=== PATIENT | female | born 1990 | race Caucasian/White ===

== ENCOUNTER 2017-11-01 20:56 | Emergency (ER) | payer OTHER ==
[~2017-11-01] VITALS: Ht 162.6 cm; Wt 82.1 kg
[2017-11-01 21:42] LABS: BILIRUBIN,URINE NEGATIVE (NEG); CLARITY,URINE CLOUDY; COLOR,URINE YELLOW; NITRITE,URINE NEGATIVE (NEG); PH,URINE 7.5; PROTEIN,URINE NEGATIVE (NEG-TRACE)
[2017-11-01 21:46] LABS: BARBITURATES NEG (NEG); BENZODIAZEPINES NEG (NEG); CANNABINOIDS NEG (NEG); COCAINE NEG (NEG); METHADONE NEG (NEG); OPIATES NEG (NEG); PHENCYCLIDINE NEG (NEG)
[2017-11-01 21:48] LABS: AMPHETAMINE/METHAMPHETAMINE NEG (NEG)
[2017-11-01 21:51] LABS: BACTERIA,URINE FEW /HPF (0-FEW); RBC,URINE 0 /HPF (0-2); SQUAMOUS EPITHELIAL CELL,UR MOD /LPF; WBC,URINE 0 /HPF (0-4)
[2017-11-01 21:52] LABS: AMORPHOUS SEDIMENT,UR PRESENT /HPF
[2017-11-01 22:09] LABS: BASO # 0.1 x10^3/uL (0.0-0.2); BASO % 1 % (0-3); EOS % 0 % (0-3); HEMATOCRIT 34.1 % (36.0-47.0); HEMOGLOBIN 11.8 g/dL (12.0-15.5); LYMPH # 3.3 x10^3/uL (1.0-4.8); LYMPH % 34 % (24-48); MEAN CORPUSCULAR HEMOGLOBIN 32 pg (25-35); MEAN CORPUSCULAR HGB CONC 35 g/dL (31-37); MEAN CORPUSCULAR VOLUME 93 fL (79-100); MONO # 0.9 x10^3/uL (0.0-1.1); MONO % 9 % (0-9); NEUT # 5.3 x10^3uL (1.8-7.7); NEUT % 55 % (31-73); PLATELET COUNT 226 x10^3/uL (140-400); RED BLOOD COUNT 3.67 x10^6/uL (3.50-5.40); RED CELL DISTRIBUTION WIDTH 13.3 % (11.5-14.5); WHITE BLOOD COUNT 9.6 x10^3/uL (4.0-11.0)
[2017-11-01 22:17] LABS: CALCIUM 8.9 mg/dL (8.5-10.1); CREATININE 0.9 mg/dL (0.6-1.0); GFR 74.6; POTASSIUM 3.7 mmol/L (3.5-5.1)
[2017-11-01 22:23] LABS: ALBUMIN 3.5 g/dL (3.4-5.0); ALBUMIN/GLOBULIN RATIO 0.9 (1.0-1.7); TOTAL BILIRUBIN 0.3 mg/dL (0.2-1.0); TOTAL PROTEIN 7.5 g/dL (6.4-8.2)
[2017-11-01 22:26] LABS: U PREG PATIENT NEGATIVE (NEG)
[2017-11-01] MEDS ORDERED: DEXAMETHASONE SOD PHOS 20 MG/5 ML VIAL. IV ONE (22:30)
[2017-11-01] MEDS ORDERED: DICYCLOMINE HCL 10 MG CAPSULE PO ONE (22:30)
[2017-11-01] MEDS ORDERED: IV NORMAL SALINE 1000ML BAG 1,000 ML IV ONE (22:30)
[2017-11-01] MEDS ORDERED: FAMOTIDINE 20 MG/2 ML VIAL IVP ONE (22:30)
[2017-11-01] MEDS ORDERED: ONDANSETRON PF 4 MG/2 ML VIAL. IV ONE (22:30)
[2017-11-01] MEDS ORDERED: CONTRAST GIVEN. MC PRN (23:00)
[2017-11-01] MEDS ORDERED: IOHEXOL 300 MG/ML 100ML VIAL. IV ONE (23:30)
--- NOTE | 2017-11-01 23:30 | RAD ---
CT abdomen and pelvis with contrast TECHNIQUE: Helical CT imaging of the abdomen and pelvis acquired with 75 mL Omnipaque 300 intravenous contrast HISTORY: Diarrhea and abdominal pain. Abdomen findings: 3 mm right middle lobe pulmonary nodule image 5. Right L5 pars defect. Multilevel lumbar laminectomies. Kidneys, adrenal glands, spleen, pancreas, liver and gallbladder are unremarkable. No duodenum and jejunum at the left upper quadrant demonstrate mild wall thickening. No bowel obstruction. The appendix is negative. There is mild wall thickening of the descending and rectosigmoid colon. No abdominal fluid or adenopathy. Pelvis findings: Mild bladder wall thickening and groundglass densities could be edema. Uterus and ovaries and bones are unremarkable. Rectosigmoid colonic wall thickening. No pelvic fluid or adenopathy. IMPRESSION: 1. Wall thickening of the duodenum, jejunum and distal colon likely representing enterocolitis. No bowel obstruction. 2. There may be mild wall thickening and edema of the bladder which could indicate cystitis. 3. The appendix is negative. 4. 3 mm right middle lobe pulmonary nodule. In a patient without risk factors for malignancy no follow-up is required, in a patient with risk factors follow-up imaging in 12 months would be advised per the Fleischner guidelines. Exposure: One or more of the following individualized dose reduction techniques were utilized for this examination: 1. Automated exposure control 2. Adjustment of the mA and/or kV according to patient size 3. Use of iterative reconstruction technique Electronically signed by: Polo Nguyen MD (11/01/2017 11:27 PM) [facility]
[2017-11-02] MEDS ORDERED: ONDA4TAB10 SL (00:04)
[2017-11-02] MEDS ORDERED: HYDR-971 PO (00:04)
[2017-11-02] MEDS ORDERED: CIPR500T94 PO (00:04)
[2017-11-02] MEDS ORDERED: METR500T PO (00:04)
--- NOTE | 2017-11-02 00:04 | PHYS DOC ---
Past Medical History Past Medical History: Anxiety, Arthritis, Seizure Additional Past Medical Histor: ULCERTATIVE COLITIS, SPINA BIFIDA, Additional Past Surgical Histo: 1991 AND 2003 SPINA BIFIDA CORRECTION Alcohol Use: None Drug Use: None Adult General Chief Complaint Chief Complaint: GI PROBLEM [facility] HPI Patient is a 27 year old female with history of anxiety, ulcerative colitis, who presents today with multiple complaints. Patient states for the last 3 days she's had severe diarrhea. She states today she had over 17 loose stools. She states this could be part of her UC. She states she's been following up with her own GI doctor for UC and was put on medications. She states she also has pressure on her lower abdomen as well as pain pain around the vaginal area. She states her current symptoms have made her anxiety worse. Patient denies any hematemesis or melena. Denies any suicidal homicidal ideations. Review of Systems Review of Systems Constitutional: Denies fever or chills [] Eyes: Denies change in visual acuity, redness, or eye pain [] HENT: Denies nasal congestion or sore throat [] Respiratory: Denies cough or shortness of breath [] Cardiovascular: No additional information not addressed in HPI [] GI: reports lower abdominal pain,and diarrhea and vaginal pain, denies nausea, vomiting, bloody stools : Denies dysuria or hematuria [] Musculoskeletal: Denies back pain or joint pain [] Integument: Denies rash or skin lesions [] Neurologic: Denies headache, focal weakness or sensory changes [] All other systems were reviewed and found to be within normal limits, except as documented in this note. Current Medications Current Medications Current Medications Medications (Trade) Dose Ordered Sig/Jocelyn Start Time Stop Time Status Last Admin Dose Admin Dexamethasone Sodium Phosphate (Decadron) 10 mg 1X ONCE 11/01/17 22:30 11/01/17 22:31 DC 11/01/17 22:29 10 MG Dicyclomine HCl (Bentyl) 10 mg 1X ONCE 11/01/17 22:30 11/01/17 22:31 DC 11/01/17 22:29 10 MG Famotidine (Pepcid Vial) 20 mg 1X ONCE 11/01/17 22:30 11/01/17 22:31 DC 11/01/17 22:29 20 MG Info (CONTRAST GIVEN -- Rx MONITORING) 1 each PRN DAILY PRN 11/01/17 23:00 11/03/17 22:59 Iohexol (Omnipaque 300 Mg/ml) 75 ml 1X ONCE 11/01/17 23:30 11/01/17 23:31 DC 11/01/17 23:06 75 ML Ondansetron HCl (Zofran) 4 mg 1X ONCE 11/01/17 22:30 11/01/17 22:31 DC 11/01/17 22:27 4 MG Sodium Chloride 1,000 ml @ 1,000 mls/hr 1X ONCE 11/01/17 22:30 11/01/17 23:29 DC 11/01/17 22:26 1,000 MLS/HR Allergies Allergies Allergies Coded Allergies Type Severity Reaction Last Updated Verified fluoxetine Allergy Intermediate 11/01/17 Yes hydromorphone Allergy Intermediate 11/01/17 Yes lamotrigine Allergy Intermediate 11/01/17 Yes Physical Exam Physical Exam Constitutional: Well developed, well nourished, no acute distress, non-toxic appearance. [] HENT: Normocephalic, atraumatic, bilateral external ears normal, oropharynx moist, no oral exudates, nose normal. [] Eyes: PERRLA, EOMI, conjunctiva normal, no discharge. [] Neck: Normal range of motion, no tenderness, supple, no stridor. [] Cardiovascular:Heart rate regular rhythm, no murmur [] Lungs & Thorax: Bilateral breath sounds clear to auscultation [] Abdomen: Bowel sounds normal, soft, diffuse tenderness to lower abdominal region , no point tenderness to the right lower quadrant, no masses, no pulsatile masses. Pelvic exam External pelvic appears normal, cervix is closed, no CMT, no adnexal tenderness , trace amount of white discharge in the vaginal vault. Skin: Warm, dry, no erythema, no rash. [] Back: No tenderness, no CVA tenderness. [] Extremities: No tenderness, no cyanosis, no clubbing, ROM intact, no edema. [] Neurologic: Alert and oriented X 3, normal motor function, normal sensory function, no focal deficits noted. [] Psychologic: Affect normal, judgement normal, mood normal. [] Current Patient Data Vital Signs Vital Signs Date Time Temp Pulse Resp B/P (MAP) Pulse Ox O2 Delivery O2 Flow Rate FiO2 11/01/17 22:15 65 105/62 (76) 98 Room Air 11/01/17 21:28 98.5 16 98.5 Lab Values Laboratory Tests Test 11/01/17 21:20 11/01/17 21:50 Urine Collection Type Unknown Urine Color Yellow Urine Clarity Cloudy Urine pH 7.5 Urine Specific [place] 1.020 Urine Protein Negative mg/dL (NEG-TRACE) Urine Glucose (UA) Negative mg/dL (NEG) Urine Ketones (Stick) Negative mg/dL (NEG) Urine Blood Negative (NEG) Urine Nitrite Negative (NEG) Urine Bilirubin Negative (NEG) Urine Urobilinogen Dipstick 1.0 mg/dL (0.2 mg/dL) Urine Leukocyte Esterase Negative (NEG) Urine RBC 0 /HPF (0-2) Urine WBC 0 /HPF (0-4) Urine Squamous Epithelial Cells Mod /LPF Urine Amorphous Sediment Present /HPF Urine Bacteria Few /HPF (0-FEW) Urine Test Negative (NEG) Urine Opiates Screen Neg (NEG) Urine Methadone Screen Neg (NEG) Urine Barbiturates Neg (NEG) Urine Phencyclidine Screen Neg (NEG) Urine Amphetamine/Methamphetamine Neg (NEG) Urine Benzodiazepines Screen Neg (NEG) Urine Cocaine Screen Neg (NEG) Urine Cannabinoids Screen Neg (NEG) Urine Ethyl Alcohol Neg (NEG) White Blood Count 9.6 x10^3/uL (4.0-11.0) Red Blood Count 3.67 x10^6/uL (3.50-5.40) Hemoglobin 11.8 g/dL (12.0-15.5) L Hematocrit 34.1 % (36.0-47.0) L Mean Corpuscular Volume 93 fL (79-100) Mean Corpuscular Hemoglobin 32 pg (25-35) Mean Corpuscular Hemoglobin Concent 35 g/dL (31-37) Red Cell Distribution Width 13.3 % (11.5-14.5) Platelet Count 226 x10^3/uL (140-400) Neutrophils (%) (Auto) 55 % (31-73) Lymphocytes (%) (Auto) 34 % (24-48) Monocytes (%) (Auto) 9 % (0-9) Eosinophils (%) (Auto) 0 % (0-3) Basophils (%) (Auto) 1 % (0-3) Neutrophils # (Auto) 5.3 x10^3uL (1.8-7.7) Lymphocytes # (Auto) 3.3 x10^3/uL (1.0-4.8) Monocytes # (Auto) 0.9 x10^3/uL (0.0-1.1) Eosinophils # (Auto) 0.0 x10^3/uL (0.0-0.7) Basophils # (Auto) 0.1 x10^3/uL (0.0-0.2) Sodium Level 138 mmol/L (136-145) Potassium Level 3.7 mmol/L (3.5-5.1) Chloride Level 103 mmol/L (98-107) Carbon Dioxide Level 27 mmol/L (21-32) Anion Gap 8 (6-14) Blood Urea Nitrogen 9 mg/dL (7-20) Creatinine 0.9 mg/dL (0.6-1.0) Estimated GFR (Cockcroft-Gault) 74.6 BUN/Creatinine Ratio 10 (6-20) Glucose Level 102 mg/dL (70-99) H Calcium Level 8.9 mg/dL (8.5-10.1) Total Bilirubin 0.3 mg/dL (0.2-1.0) Aspartate Amino Transferase (AST) 12 U/L (15-37) L Alanine Aminotransferase (ALT) 16 U/L (14-59) Alkaline Phosphatase 65 U/L (46-116) Total Protein 7.5 g/dL (6.4-8.2) Albumin 3.5 g/dL (3.4-5.0) Albumin/Globulin Ratio 0.9 (1.0-1.7) L Ethyl Alcohol Level < 10 mg/dL (0-10) Laboratory Tests 11/01/17 21:50 Laboratory Tests 11/01/17 21:50 Microbiology 11/01/17 Wet Prep - Final, Complete EKG EKG [] Radiology/Procedures Radiology/Procedures []PROCEDURE: CT ABD PELV W/ IV CONTRST ONLY CT abdomen and pelvis with contrast TECHNIQUE: Helical CT imaging of the abdomen and pelvis acquired with 75 mL Omnipaque 300 intravenous contrast HISTORY: Diarrhea and abdominal pain. Abdomen findings: 3 mm right middle lobe pulmonary nodule image 5. Right L5 pars defect. Multilevel lumbar laminectomies. Kidneys, adrenal glands, spleen, pancreas, liver and gallbladder are unremarkable. No duodenum and jejunum at the left upper quadrant demonstrate mild wall thickening. No bowel obstruction. The appendix is negative. There is mild wall thickening of the descending and rectosigmoid colon. No abdominal fluid or adenopathy. Pelvis findings: Mild bladder wall thickening and groundglass densities could be edema. Uterus and ovaries and bones are unremarkable. Rectosigmoid colonic wall thickening. No pelvic fluid or adenopathy. IMPRESSION: 1. Wall thickening of the duodenum, jejunum and distal colon likely representing enterocolitis. No bowel obstruction. 2. There may be mild wall thickening and edema of the bladder which could indicate cystitis. 3. The appendix is negative. 4. 3 mm right middle lobe pulmonary nodule. In a patient without risk factors for malignancy no follow-up is required, in a patient with risk factors follow-up imaging in 12 months would be advised per the Fleischner guidelines. Exposure: One or more of the following individualized dose reduction techniques were utilized for this examination: 1. Automated exposure control 2. Adjustment of the mA and/or kV according to patient size 3. Use of iterative reconstruction technique Electronically signed by: Polo Nguyen MD (11/01/2017 11:27 PM) [facility] DICTATED and SIGNED BY: POLO NGUYEN MD DATE: 11/01/17 2313 Course & Med Decision Making Course & Med Decision Making Pertinent Labs and Imaging studies reviewed. (See chart for details) This is a 27-year-old female patient with history of anxiety, ulcerative colitis , who presents today complaining of multiple episodes of diarrhea, abdominal pain and vaginal pain. Negative urine hCG, CBC with normal WBC, hemoglobin 11.8, hematocrit 34.1. Wet prep positive for BV. CT of the abdomen and pelvic was noted for enterocolitis. Were discharged with Cipro and Flagyl. CT also mentioned possible mild blood thickening that could be cystitis. Patient does not have any UTI symptoms, her urine analysis is negative for infection. Patient was noted to have a right 3 mm middle lobe pulmonary nodule. Patient is not a smoker. Requested she follows up with her PCP. Also requested follow-up with the GI doctor. Dragon Disclaimer Dragon Disclaimer This electronic medical record was generated, in whole or in part, using a voice recognition dictation system. Departure Departure Impression: Primary Impression: Enterocolitis Additional Impressions: Bacterial vaginosis Abdominal pain Disposition: HOME, SELF-CARE Condition: STABLE Referrals: NON,STAFF (PCP) follow up in one week with your GI doctor as well as primary care doctor Patient Instructions: Abdominal Pain, Bacterial Vaginosis, [id number], Colitis, Ulcerative Colitis Additional Instructions: You were evaluated for abdominal pain and noted to have enterocolitis. You also have bacterial vaginosis. Ensure you complete your antibiotics. Follow-up with a GI doctor as well as primary care doctor in the course of next week. Scripts Hydrocodone/Apap 5-325 (NORCO 5-325 TABLET) 1 Each Tablet 1 TAB PO Q6HRS, #12 TAB Prov: CELINA BRONSON APRN 11/02/17 Ondansetron (ZOFRAN ODT) 4 Mg Tab.rapdis 1 TAB SL Q8HRS, #15 TAB Prov: CELINA BRONSON APRN 18 Ciprofloxacin Hcl (CIPRO) 500 Mg Tablet 1 TAB PO BID, #20 TAB Prov: CELINA BRONSON APRN 18 Metronidazole (FLAGYL) 500 Mg Tablet 500 MG PO TID, #30 TAB Prov: CELINA BRONSON APRN 18 Problem Qualifiers Additional Impressions: Abdominal pain Abdominal location: lower abdomen, unspecified Qualified Codes: R10.30 - Lower abdominal pain, unspecified CELINA BRONSON APRN Nov 02, 2017 00:04
[2017-11-02 00:57] VITALS: BP 104/60
[2017-11-04 14:28] LABS: GC PROBE Negative (Negative)
== END 2017-11-02 00:10 | disposition home or self-care (01) ==
LOC: ER 20:56
DX: R19.7 Diarrhea, unspecified (principal); R10.2 Pelvic and perineal pain; R10.84 Generalized abdominal pain; Z88.5 Allergy status to narcotic agent; Z88.8 Allergy status to other drugs, medicaments and biological substances
CPT/HCPCS: 36415; 74177; 80053; 80307; 81001; 81025; 85025; 87491; 87591; 96361; 96374; 96375; 99285; G0480; J1100; J2405; J7030; Q0111; Q9967; S0028; G0479

== ENCOUNTER 2018-06-22 14:11 | Emergency (ER) | payer OTHER ==
[~2018-06-22] VITALS: Ht 165.1 cm; Wt 82.1 kg
[~2018-06-22 14:11] MED LIST: CIPR500T94 PO; HYDR-3164 PO; METR500T PO; ONDA4TAB10 SL
[2018-06-22 15:19] VITALS: BP 126/69
--- NOTE | 2018-06-22 15:35 | PHYS DOC ---
Past Medical History Past Medical History: Anxiety, Arthritis, Seizure Additional Past Medical Histor: ULCERTATIVE COLITIS, SPINA BIFIDA, (CELINA BRONSON APRN) Additional Past Surgical Histo: 1991 AND 2003 SPINA BIFIDA CORRECTION (CELINA BRONSON APRN) Alcohol Use: None Drug Use: None (CELINA BRONSON APRN) Adult General Chief Complaint Chief Complaint: LOWER EXTREMITY SWELLING HPI HPI Patient is a 27 year old female with history of arthritis, anxiety, Crohn's disease on Entivyo and steroids who presents to the ED today complaining of swelling throughout her body that has been going on for months. Patient states she's been on steroids for a long time and she takes them every 2 months then they give her a break for a couple months then she is placed back on steroids. She states the steroids have increased her appetite and making her gain weight. She states her doctor is aware. She states she would like us to do something about the swelling and hopefully removal from the steroids. Patient denies any chest pain, shortness of breath, fevers. Denies any chance she is . I had a long conversation with the patient, informed her we cannot removal from the steroids because of her Crohn's disease will flareup. I recommended she follows up with her own doctor and they can work on him which medications she can take, she's been on steroids for a long time and sudden withdrawal from them will not be safe. Unfortunately she does not remember the name of the steroids. She does not have full symptoms for aniket disease. We will let her f/u with her doctor for her symptoms. In the meantime I recommended compression stockings as well as compression sleeves. Recommended elevation. (CELINA BRONSON APRN) Review of Systems Review of Systems Constitutional: Denies fever or chills [] Eyes: Denies change in visual acuity, redness, or eye pain [] HENT: Denies nasal congestion or sore throat [] Respiratory: Denies cough or shortness of breath [] Cardiovascular: No additional information not addressed in HPI [] GI: Denies abdominal pain, nausea, vomiting, bloody stools or diarrhea [] : Denies dysuria or hematuria [] Musculoskeletal: Swelling throughout her body. Denies back pain or joint pain [] Integument: Denies rash or skin lesions [] Neurologic: Denies headache, focal weakness or sensory changes [] All other systems were reviewed and found to be within normal limits, except as documented in this note. (CELINA BRONSON APRN) Allergies Allergies Allergies Coded Allergies Type Severity Reaction Last Updated Verified fluoxetine Allergy Intermediate 11/01/17 Yes hydromorphone Allergy Intermediate 11/01/17 Yes lamotrigine Allergy Intermediate 11/01/17 Yes (BRENDA GRIGGS MD) Physical Exam Physical Exam Constitutional: Well developed, well nourished, no acute distress, non-toxic appearance. [] HENT: Normocephalic, atraumatic, bilateral external ears normal, oropharynx moist, no oral exudates, nose normal. [] Eyes: PERRLA, EOMI, conjunctiva normal, no discharge. [] Neck: Normal range of motion, no tenderness, supple, no stridor. [] Cardiovascular:Heart rate regular rhythm, no murmur [] Lungs & Thorax: Bilateral breath sounds clear to auscultation [] Abdomen: Bowel sounds normal, soft, no tenderness, no masses, no pulsatile masses. [] Skin: No fatty swelling/hump between the shoulder blades, slight swelling noted around the face or extra weight. Warm, dry, no erythema, no rash. [] Back: No tenderness, no CVA tenderness. [] Extremities: No tenderness, no cyanosis, no clubbing, ROM intact, +1 edema noted to bilateral lower extremities, trace edema to bilateral upper extremities, negative Homans sign bilaterally. Neurologic: Alert and oriented X 3, normal motor function, normal sensory function, no focal deficits noted. [] Psychologic: Affect normal, judgement normal, mood normal. [] (CELINA BRONSON APRN) Current Patient Data Vital Signs Vital Signs Date Time Temp Pulse Resp B/P (MAP) Pulse Ox O2 Delivery O2 Flow Rate FiO2 06/22/18 15:19 97.8 78 18 126/69 (88) 99 Room Air 97.8 (BRENDA GRIGGS MD) EKG EKG [] (CELINA BRONSON APRN) Radiology/Procedures Radiology/Procedures [] (CELINA BRONSON APRN) Course & Med Decision Making Course & Med Decision Making Pertinent Labs and Imaging studies reviewed. (See chart for details) [] (CELINA BRONSON APRN) Course & Med Decision Making I was available for consultation regarding this patient's care. I did not see or evaluate the patient unless otherwise specified. (BRENDA GRIGGS MD) Dragon Disclaimer Dragon Disclaimer This electronic medical record was generated, in whole or in part, using a voice recognition dictation system. (CELINA BRONSON APRN) Departure Departure Impression: Primary Impression: Edema Additional Impression: Chronic use of steroids Disposition: HOME, SELF-CARE Condition: STABLE Referrals: NON,STAFF (PCP) Follow-up with your own doctor in the course of this week or next week Patient Instructions: Edema Additional Instructions: You were evaluated in the emergency room for swelling from steroid use. We hi ghly recommend you follow-up with your doctor and work with him or her on this. In the meantime try to wear compression stockings and compression sleeves. Try to elevate your extremities. Problem Qualifiers Primary Impression: Edema Edema type: unspecified Qualified Codes: R60.9 - Edema, unspecified CELINA BRONSON APRN Jun 22, 2018 15:35 BRENDA GRIGGS MD Jun 22, 2018 17:54
== END 2018-06-22 16:32 | disposition home or self-care (01) ==
LOC: ER 14:11
DX: R60.0 Localized edema (principal); Z79.52 Long term (current) use of systemic steroids; F41.9 Anxiety disorder, unspecified; Z88.5 Allergy status to narcotic agent; Z88.8 Allergy status to other drugs, medicaments and biological substances
CPT/HCPCS: 99281

== ENCOUNTER 2018-06-23 11:45 | Emergency (ER) | payer SELFPAY ==
[~2018-06-23] VITALS: Ht 162.6 cm; Wt 84.8 kg
[2018-06-23 11:58] VITALS: BP 143/73
== END 2018-06-23 13:19 | disposition left against medical advice (07) ==
LOC: ER 11:45
DX: M79.604 Pain in right leg (principal); M79.605 Pain in left leg; M79.602 Pain in left arm; M79.601 Pain in right arm; Z53.21 Procedure and treatment not carried out due to patient leaving prior to being seen by health care provider

== ENCOUNTER 2018-10-29 08:46 | Emergency (ER) | payer OTHER ==
[~2018-10-29] VITALS: Ht 162.6 cm; Wt 89.4 kg
[2018-10-29 09:17] VITALS: BP 151/98
--- NOTE | 2018-10-29 09:31 | PHYS DOC ---
Past Medical History Past Medical History: Anxiety, Arthritis, Seizure, Other Additional Past Medical Histor: ULCERTATIVE COLITIS, SPINA BIFIDA, Past Surgical History: Other Additional Past Surgical Histo: 1991 AND 2003 SPINA BIFIDA CORRECTION Alcohol Use: None Drug Use: None Adult General Chief Complaint Chief Complaint: Congestion HPI HPI Patient is a 28 year old female presents with sore throat, congestion, body aches, and cough for 3 days. The patient rates her pain as 9/10 in severity that her head feels full pressure. Has not taken any medication before arrival. Review of Systems Review of Systems Constitutional: Denies fever or chills [] Eyes: Denies change in visual acuity, redness, or eye pain [] HENT: Reports nasal congestion or sore throat [] Respiratory: Reports cough and shortness of breath [] Cardiovascular: No additional information not addressed in HPI [] GI: Denies abdominal pain, nausea, vomiting, bloody stools or diarrhea [] : Denies dysuria or hematuria [] Musculoskeletal: Denies back pain or joint pain [] Integument: Denies rash or skin lesions [] Neurologic: Denies headache, focal weakness or sensory changes [] Endocrine: Denies polyuria or polydipsia [] Complete systems were reviewed and found to be within normal limits, except as documented in this note. Allergies Allergies Allergies Coded Allergies Type Severity Reaction Last Updated Verified fluoxetine Allergy Intermediate 11/01/17 Yes hydromorphone Allergy Intermediate 11/01/17 Yes lamotrigine Allergy Intermediate 11/01/17 Yes Physical Exam Physical Exam Constitutional: Well developed, well nourished, no acute distress, non-toxic appearance. [] HENT: Normocephalic, atraumatic, bilateral external ears normal, tonsils are 2+/4 with erythema, oropharynx moist, no oral exudates, nose inflamed Eyes: PERRLA, EOMI, conjunctiva normal, no discharge. [] Neck: Normal range of motion, no tenderness, supple, no stridor. [] Cardiovascular:Heart rate regular rhythm, no murmur [] Lungs & Thorax: Bilateral breath sounds clear to auscultation [] Abdomen: Bowel sounds normal, soft, no tenderness, no masses, no pulsatile masses. [] Skin: Warm, dry, no erythema, no rash. [] Back: No tenderness, no CVA tenderness. [] Extremities: No tenderness, no cyanosis, no clubbing, ROM intact, no edema. [] Neurologic: Alert and oriented X 3, normal motor function, normal sensory function, no focal deficits noted. [] Psychologic: Affect normal, judgement normal, mood normal. [] Current Patient Data Vital Signs Vital Signs Date Time Temp Pulse Resp B/P (MAP) Pulse Ox O2 Delivery O2 Flow Rate FiO2 10/29/18 09:17 98.0 76 16 151/98 (115) 95 Room Air 98.0 Lab Values Laboratory Tests Test 10/29/18 09:29 POC Urine HCG, Qualitative Hcg negative (Negative) EKG EKG [] Radiology/Procedures Radiology/Procedures [][facility] [address] [facility] [place], [place] [id number] IMAGING REPORT Signed PATIENT: MALIKA HARRINGTON ACCOUNT: [id number] : 1990 LOCATION: ER AGE: 28 SEX: F EXAM STATUS: REG ER ORD. PHYSICIAN: SEAN BHATIA APRN REASON: shortness of breath, cough, nasal congestion x3 days PROCEDURE: CHEST PA & LATERAL Chest radiograph 10/29/2018 9:25 AM INDICATION: Shortness of breath, cough and nasal congestion COMPARISON: None available TECHNIQUE: Frontal and lateral views of the chest are provided. FINDINGS: The cardiomediastinal silhouette is within normal limits. There are no pleural effusions. There is no pulmonary vascular congestion. There is no pneumothorax. The lungs are clear. No significant osseous abnormality is identified. IMPRESSION: No acute cardiopulmonary process. Electronically signed by: Anh Lu MD (10/29/2018 10:03 AM) [facility] DICTATED and SIGNED BY: ANH LU MD DATE: 10/29/18 1003 Course & Med Decision Making Course & Med Decision Making Pertinent Labs and Imaging studies reviewed. (See chart for details) Will get Chest X-ray. Chest x-ray is negative. Appears to have upper respiratory infection. Will give Decadron in ER. Dragon Disclaimer Dragon Disclaimer This electronic medical record was generated, in whole or in part, using a voice recognition dictation system. Departure Departure Impression: Primary Impression: URI (upper respiratory infection) Disposition: 01 HOME, SELF-CARE Condition: STABLE Referrals: TERRI HITCHCOCK MD (PCP) Patient Instructions: Upper Respiratory Infection, Adult Additional Instructions: Thank you for visiting [facility]. We appreciate you trusting us with your care. If any additional problems come up don't hesitate to return to visit us. Please follow up with your primary care provider so they can plan additional care if needed and know about the problem that you had. If symptoms worsen come back to the Emergency Department. Any concerning symptoms that start such as chest pain, shortness of air, weakness or numbness on one side of the body, running high fevers or any other concerning symptoms return to the ER. Please drink plenty of fluids, take Mucinex, and Zyrtec over the counter (follow label directions). Problem Qualifiers Primary Impression: URI (upper respiratory infection) URI type: unspecified URI Qualified Codes: J06.9 - Acute upper respiratory infection, unspecified SEAN BHATIA APRN Oct 29, 2018 09:31
--- NOTE | 2018-10-29 10:06 | RAD ---
Chest radiograph 10/29/2018 9:25 AM INDICATION: Shortness of breath, cough and nasal congestion COMPARISON: None available TECHNIQUE: Frontal and lateral views of the chest are provided. FINDINGS: The cardiomediastinal silhouette is within normal limits. There are no pleural effusions. There is no pulmonary vascular congestion. There is no pneumothorax. The lungs are clear. No significant osseous abnormality is identified. IMPRESSION: No acute cardiopulmonary process. Electronically signed by: Flory Hinson MD (10/29/2018 10:03 AM) [facility]
[2018-10-29] MEDS ORDERED: DEXAMETHASONE 4 MG TABLET PO STA (10:08)
== END 2018-10-29 10:22 | disposition home or self-care (01) ==
LOC: ER 08:46
DX: J06.9 Acute upper respiratory infection, unspecified (principal); F41.9 Anxiety disorder, unspecified; M19.90 Unspecified osteoarthritis, unspecified site; Z88.5 Allergy status to narcotic agent; Z88.8 Allergy status to other drugs, medicaments and biological substances
CPT/HCPCS: 71046; 81025; 99284; J8540